=== PATIENT | female | born 1975 | race Caucasian/White ===

== ENCOUNTER 2018-09-12 11:13 | Outpatient (RCR) | payer BC, SELFPAY ==
[2018-09-12] MEDS: Normal Saline Flush 10 ML SYR IVP (11:27)
[2018-09-12 11:43] LABS: ALT 26 U/L (12-78); AST 10 U/L (15-37); Albumin 3.8 g/dL (3.4-5.0); Alkaline Phosphatase 68 U/L (46-116); Anion Gap 8.3 mmol/L (3-11); BUN 15 mg/dL (7-18); Bilirubin, Total 0.3 mg/dL (0.2-1.0); CO2 28.7 mmol/L (21.0-32.0); CREATININE 0.51 mg/dL (0.55-1.02); Calcium 8.8 mg/dL (8.5-10.1); Chloride 103 mmol/L (98-107); Glucose 94 mg/dL (70-100); Sodium 140 mmol/L (136-145); Total Protein 6.8 g/dL (6.4-8.2)
[2018-09-12 11:45] LABS: Abs Immature Grans 0.01 k/cumm (0.0-0.09); Absolute Basophil Count 0.03 k/cumm (0.0-0.2); Absolute Eosinophil Count 0.15 k/cumm (0.0-0.7); Absolute Lymphocyte Count 2.05 k/cumm (1.2-3.4); Absolute Monocyte Count 0.42 k/cumm (0.11-0.7); Absolute Neutrophil Count 3.02 k/cumm (1.2-6.7); Basophils % 0.5; Eosinophils % 2.6; HCT 34.9 % (36.0-46.0); HGB 11.5 g/dL (12.0-15.5); Immature Grans % 0.2; Lymphocytes % 36.1; Mean Corpuscular Hemoglobin 29.6 pg (27.0-33.0); Mean Corpuscular Volume 89.9 fL (80-95); Mean Platelet Volume 9.7 fL (8.0-11.0); Monocytes % 7.4; Neutrophils % 53.2; Platelet Count 237 x1000/uL (130-400); RBC 3.88 m/cumm (4.00-5.20); RBC Distribution Width 13.2 % (11.7-14.6); White Blood Cell Count 5.68 k/cumm (4.4-10.8)
== END 2018-09-14 23:59 | disposition home or self-care (01) ==
LOC: INF 11:13
PROVIDERS: PCP Family Medicine; Visit Provider Internal Medicine Medical Oncology
DX: C50.211 Malignant neoplasm of upper-inner quadrant of right female breast (principal); Z17.0 Estrogen receptor positive status [ER+]; Z45.2 Encounter for adjustment and management of vascular access device
CPT/HCPCS: 36591; 80053; 85025

== ENCOUNTER 2018-09-24 15:48 | Inpatient (IN) | payer BC, SELFPAY ==
[2018-09-24 15:57] VITALS: BP 110/67; PULSE 77; RESP 16; TEMP 36.5; O2SAT 99
--- NOTE | 2018-09-24 16:34 | ED.GENADUL_ITS ---
Discharge Plan Disposition Condition: Improving Discharge Details Chief Complaint: Cellulitis Reason For Visit: CELLUTITIS RT HAND W/LEUKOCYTOSIS, RT BREAST CANCE Admit Date/Time: 09/24/18 17:40 Admit Provider: Sam Austin Attending Provider: Brian Stokes Primary Care Provider: Renetta Mac ED Provider: Justo Gaines Discharge Instructions Activity:: Activity as Tolerated Equipment/Supplies:: No Equipment Needed Diet:: As Tolerated Discharge Orders Discharge Orders: Discharge Order (Routine); Ordered 09/27/18 Ordered By: Lisa Berry Discharge Data Discharge Date/Time-TO BE ENTERED AT DEPARTURE: 09/24/18 18:40 Medical Decision Making 43-year-old female with history of ductal carcinoma of the breast, status post bilateral mastectomy and lymph node dissection right axilla, on chemotherapy, here with rapidly progressive cellulitis of the right second digit. Given immunocompromised state, right axillary lymph node dissection, and rapidly progressive signs, patient will likely benefit from parenteral antibiotic. Labs reviewed. Plan to start vancomycin IV. I called and spoke with the hospitalist who will admit the patient. Care transition to hospitalist. Diagnosis: cellulitis right hand Dispo: admit Condition: serious Please note that documentation of ED visit was unintentionally delayed and may contain autopopulated data from later in hospitalization. HPI General Mode of arrival: ambulatory . Date/Time Provider Initiated Documentation: 09/24/18 16:12 . Limitations to Documentation: no limitations . Information obtained by: patient . HPI Narrative: 43-year-old female with history of ductal carcinoma of the breast, status post bilateral mastectomy and right axillary lymph node dissection, on chemotherapy, presents with chief complaint of finger infection. Patient notes that 3 days ago she noticed a sm all area of abrasion on her right second digit. Yesterday she had increasing inflammation in the area. This inflammation has progressed. Area is red and swollen with a pustule. Redness seems to be rapidly worsening today without streaking into her dorsal hand. Symptoms are moderate. No modifiers. No associated fever. Related Data Home Medications Medication Instructions Recorded Confirmed cholecalciferol (vitamin D3) 1,000 1,000 unit PO DAILY 06/12/18 09/24/18 unit capsule multivitamin tablet 1 tab PO DAILY 06/12/18 09/24/18 acetaminophen 500 mg tablet 1,000 mg PO Q12H PRN PRN tab 01/24/19 03/10/19 cyclobenzaprine 10 mg tablet 10 mg PO TID PRN #30 tab 08/10/18 09/24/18 ibuprofen 600 mg tablet 600 mg PO BID PRN tab 08/10/18 09/24/18 dronabinol 5 mg capsule 10 mg PO QID PRN #100 cap MDD 8 09/06/18 09/24/18 cephalexin [Keflex] 500 mg PO QID #40 cap 09/27/18 Previous Rx's Medication Instructions Recorded cyclobenzaprine 10 mg tablet 10 mg PO TID PRN #30 tab 08/10/18 dronabinol 5 mg capsule 10 mg PO QID PRN #100 cap MDD 8 09/06/18 cephalexin [Keflex] 500 mg PO QID #40 cap 09/27/18 Allergies Allergy/AdvReac Type Severity Reaction Status Date / Time codeine Allergy Severe Verified 09/24/18 16:01 General Stated Complaint: Cellulitis YASMIN: 3 Review of Systems Constitutional Denies fever(s) Integumentary/Breasts Reports as per HPI [facility] Medical History Weight loss (Chronic) Nasal injury (Chronic) Vestibular active Meniere's disease (Chronic) Invasive ductal carcinoma of breast, stage 2 (Chronic) Surgical History History of dilation and curettage (Acute ~05/29/99) S/P mastectomy, bilateral (Acute) S/P rhinoplasty (Acute) S/P tonsillectomy (Acute ~1995) Family History Mother Hypertension Father Hypertension Heart disease Hyperlipidemia Sister No problems noted. Maternal Grandfather Lung cancer Prostate cancer Paternal Grandfather Alcohol abuse Maternal Grandmother Hypertension Ocular melanoma Paternal Grandmother Ovarian cancer Son No problems noted. Son No problems noted. Son No problems noted. 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 Pets and animals: Yes Pets and animals: dog(s) Duration: > 90 minutes/day Frequency: 1-2 times per week Ramonita/Orthodoxy: No preference Special ramonita needs: No Do you feel safe in your relationship?: Yes Female Reproductive History Menstrual control method: condoms History History 4 Para Hx # Term Pregnancies Multiple births Hx # Pregnancies Ectopic pregnancies AB induced Hx Number of Living Children 3 AB spontaneous Exam Const General: cooperative and no acute distress HENMT Mouth: moist mucous membranes Eyes Conjunctivae: normal conjunctivae Sclera: normal sclerae Resp Auscultation: clear to auscultation bilaterally, no rales, no rhonchi and no wheezes Cardio Jugular venous pressure: no JVD Rate: regular rate and not tachycardic Rhythm: regular rhythm Skin Lesions: other (single pustule on rt 2nd digit) Rashes: rashes noted (Dorsal right second digit with erythema extending up to dorsal hand) Extrem Right upper extremity: hand (rash as noted above, swelling rt 2nd digit, able to flex and ext digit) Details: neurosensory exam normal and normal ROM of fingers Course Vital Signs Temperature 36.5 C 09/24/18 15:57 Pulse 77 09/24/18 15:57 Respiratory Rate 16 09/24/18 15:57 Blood Pressure 110/67 09/24/18 15:57 Pulse Oximetry 99 09/24/18 15:57 Temperature 36.5 C 09/24/18 15:57 Temperature Source Skin 09/24/18 15:57 Pulse 77 09/24/18 15:57 Respiratory Rate 16 09/24/18 15:57 Respiratory Effort Non-Labored 09/24/18 15:57 Blood Pressure 110/67 09/24/18 15:57 Blood Pressure Position Sitting 09/24/18 15:57 Pulse Oximetry 99 09/24/18 15:57 Oxygen Delivery Method Room Air 09/24/18 15:57 Oxygen Flow Rate 0 09/24/18 15:57 Pain Level 2 09/24/18 15:57
[2018-09-24] MEDS: Lactated Ringers 1,000 ML 125 ML IV (17:04)
[2018-09-24] MEDS: Normal Saline-STERILE FIELD 0.9% 10 ML SYR (17:04)
[2018-09-24 17:11] LABS: Abs Immature Grans 4.56 k/cumm (0.0-0.09); HCT 31.7 % (36.0-46.0); HGB 10.4 g/dL (12.0-15.5); Mean Corp. HGB Concentration 32.8 g/dL (32.0-36.0); Mean Corpuscular Hemoglobin 29.3 pg (27.0-33.0); Mean Corpuscular Volume 89.3 fL (80-95); Platelet Count 171 x1000/uL (130-400); RBC 3.55 m/cumm (4.00-5.20); RBC Distribution Width 12.9 % (11.7-14.6)
[2018-09-24 17:13] LABS: Lactate 0.7 mmol/L (0.6-1.4)
[2018-09-24] MEDS: VANCOMYCIN 1,500 MG in Normal Saline 250 ML 166.6666 MG IVPB (17:21)
[2018-09-24 17:33] LABS: ALT 26 U/L (12-78); AST 14 U/L (15-37); Albumin 3.6 g/dL (3.4-5.0); Alkaline Phosphatase 114 U/L (46-116); Anion Gap 8.6 mmol/L (3-11); BUN 11 mg/dL (7-18); Bilirubin, Total 0.2 mg/dL (0.2-1.0); CO2 28.4 mmol/L (21.0-32.0); CREATININE 0.54 mg/dL (0.55-1.02); Calcium 8.6 mg/dL (8.5-10.1); Chloride 103 mmol/L (98-107); Glucose 82 mg/dL (70-100); Potassium 3.4 mmol/L (3.5-5.1); Sodium 140 mmol/L (136-145); Total Protein 6.5 g/dL (6.4-8.2)
[2018-09-24 17:39] LABS: Absolute Lymphocyte Count 2.36 k/cumm (1.2-3.4); Absolute Neutrophil Count 19.91 k/cumm (1.2-6.7); Diff Comment Manual Differential; RBC Morphology Normal
[2018-09-24 18:03] VITALS: BP 108/63; PULSE 73; TEMP 37.2; O2SAT 100
--- NOTE | 2018-09-24 18:05 | NUR.NOTE ---
Nursing Note: 1803 c/o head itching--scratching head---Vanco --infusion stopped--Dr Gaines notified and exam pt
[2018-09-24] MEDS: diphenhydrAMINE 50 MG/ML VIAL IVP (18:12)
[2018-09-24 18:40] VITALS: BP 125/71; PULSE 69; RESP 18; TEMP 37.1; O2SAT 100
[2018-09-24 18:52] VITALS: BP 125/71; PULSE 69; RESP 18; TEMP 37.1; O2SAT 100
[2018-09-24 19:11] VITALS: BP 125/71; PULSE 69; RESP 18; TEMP 37.1; O2SAT 100
[2018-09-24] MEDS: CLINDAMYCIN 600 MG/50 ML BAG 100 MG IVPB (19:51)
[2018-09-24] MEDS: Heparin 5,000 UNITS/ML VIAL 5000 UNITS SC (21:28)
--- NOTE | 2018-09-24 22:30 | HPE_ITS ---
Date of service: 09/24/18 Time of Service: 22:23 Assessment and Plan (1) Cellulitis of right index finger: Start date: 09/24/18 Current visit: Yes Status: Acute This is a 43-year-old lady who has slight injury to the dorsal aspect of her right index finger the day prior to admission and then a sudden onset of swelling pain with a pustule and red streak up her right hand and wrist prompting evaluation in the ED because of her recent history of lymph node dissection on the right and breast cancer treatment with an immunocompromised state. She had no fever or systemic symptoms but her white count was elevated and this could be secondary to Neulasta given after her last chemo therapy though this was 2 weeks ago. He will be admitted for IV antibiotic therapy h sara had a slight reaction to vancomycin she was switched to clindamycin IV. If she does well on IV therapy she could be converted to oral therapy for completion. (2) Invasive ductal carcinoma of breast, stage 2: Current visit: No Status: Chronic Patient has ongoing chemotherapy planned and with this infection this may be altered with oncology to determine this plan. She will continue follow-up with oncology. 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 She had complications with nipple necrosis bilaterally now stabilized with corrective surgery. She is on chemotherapy and her last treatment 2 weeks ago and Neulasta after that treatment. She was shopping the day prior to admission and had a small puncture wound over her right index finger on the dorsal aspect of the PIP joint which she kept clean and did not think was a problem. 1 of admission her right knee was stiff and tender with flexion with swelling and redness over her dorsal aspect of the PIP small pustule forming. They progressed the redness went over her hand and up her arm with a red streak with increased pain and she reports the ED for evaluation. She was found to have an elevated white count which may be a consequence of the Neulasta though this is now 2 weeks out. She had no fever, chills or rigors but the swelling and red streak was quickly advancing as well as the pain over the index finger increasing rather quickly. She generally is healthy with no history diabetes but is immunocompromised with her chemotherapy. Review of Systems Review of Systems 13 point review of systems otherwise unrevealing or stable and as per HPI. Patient has lost some weight with a low carb diet over the last several months. [facility] Medical History Weight loss (Chronic) Nasal injury (Chronic) Vestibular active Meniere's disease (Chronic) Invasive ductal carcinoma of breast, stage 2 (Chronic) Surgical History History of dilation and curettage (Acute ~05/29/99) S/P mastectomy, bilateral (Acute) S/P rhinoplasty (Acute) S/P tonsillectomy (Acute ~1995) Family History Mother Hypertension Father Hypertension Heart disease Hyperlipidemia Sister No problems noted. Maternal Grandfather Lung cancer Prostate cancer Paternal Grandfather Alcohol abuse Maternal Grandmother Hypertension Ocular melanoma Paternal Grandmother Ovarian cancer Son No problems noted. Son No problems noted. Son No problems noted. 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 pets and animals: Yes pets and animals: dog(s) frequency: 1-2 times per week duration: > 90 minutes/day Smoking and Tabacco status: Never alcohol intake: never substance use type: does not use merlin/oriental orthodox: No preference special merlin needs: No Female Reproductive History Menstrual control method: condoms History History 4 Para Hx # Term Pregnancies Multiple births Hx # Pregnancies Ectopic pregnancies AB induced Hx Number of Living Children 3 AB spontaneous Meds Home Medications Medication Instructions Recorded Confirmed Type cholecalciferol (vitamin D3) 1,000 1,000 unit PO DAILY 06/12/18 09/24/18 History unit capsule multivitamin tablet 1 tab PO DAILY 06/12/18 09/24/18 History acetaminophen 500 mg tablet 1,000 mg PO Q12H PRN PRN tab 08/10/18 09/24/18 History cyclobenzaprine 10 mg tablet 10 mg PO TID PRN #30 tab 08/10/18 09/24/18 Rx ibuprofen 600 mg tablet 600 mg PO BID PRN tab 08/10/18 09/24/18 History dronabinol 5 mg capsule 10 mg PO QID PRN #100 cap MDD 8 09/06/18 09/24/18 Rx Allergies Allergy/AdvReac Type Severity Reaction Status Date / Time codeine Allergy Severe Verified 09/24/18 16:01 Exam Narrative Exam Narrative: General: Patient appears appropriate for age in no acute distress alert and oriented x3. HEENT: Normocephalic, eyes with pupils equal and reactive to light symmetrically, sclera anicteric, extraocular movement intact. Oropharynx with pink and moist mucosa. Ears normal. Neck: Supple without JVD. Back: Normal posture with no CVA tenderness. Lungs: Clear to auscultation percussion. Heart: Regular rate and rhythm with no murmurs gallops appreciated. Breasts: Recent surgery with bilateral implants, full exam not performed. Abdomen: Contour scaphoid, soft and nontender. No palpable hepatomegaly. Genitalia rectal exam: Deferred. Extremities: Without clubbing cyanosis or pitting edema. Right hand has erythema with localized swelling and tenderness over the PIP of the index finger with erythema extending over the dorsum of the proximal finger onto the hand and of the wrist which actually appears slightly improved from the description by the ED physician status post first dose of IV antibiotics. The index finger is tender to range of motion. There is a possible over the dorsum of the PIP of the right index finger. Skin: Normal color, warm and dry with no rashes. Neuro: Motor intact, cranial nerves II through XII grossly intact. Psych: Normal mood and thought processes, normal memory. Patient has good insight. Results Labs : 09/24/18 17:00 09/24/18 17:00 Laboratory Results - last 24 hr 09/24/18 09/24/18 09/24/18 17:00 17:00 17:00 WBC 26.20 H* RBC 3.55 L Hgb 10.4 L Hct 31.7 L MCV 89.3 MCH 29.3 MCHC 32.8 RDW 12.9 Plt Count 171 MPV 9.0 Immature Gran % See Differential Neutrophils % 73.0 Band Neutrophils % 3.0 Lymphocytes % 9.0 Monocytes % 8.0 Eosinophils % 0.0 Basophils % 0.0 Metamyelocytes % 7.0 Absolute Neutrophils 19.91 H Absolute Lymphocytes 2.36 Absolute Monocytes 2.10 H Absolute Eosinophils 0.00 Absolute Basophils 0.00 Differential Comment Manual differential RBC Morphology Normal Sodium 140 Potassium 3.4 L Chloride 103 Carbon Dioxide 28.4 Anion Gap 8.6 BUN 11 Creatinine 0.54 L Estimated GFR/1.73 m2 >= 60.00 Glucose 82 Lactate 0.7 Calcium 8.6 Total Bilirubin 0.2 AST 14 L ALT 26 Alkaline Phosphatase 114 Total Protein 6.5 Albumin 3.6 Last Vital Signs Temp 37.1 C 09/24/18 19:11 Pulse 69 09/24/18 19:11 Resp 18 09/24/18 19:11 BP 125/71 09/24/18 19:11 Pulse Ox 100 09/24/18 19:11
[2018-09-24 23:30] VITALS: BP 98/68; PULSE 68; RESP 17; TEMP 36.6; O2SAT 97
[2018-09-25] MEDS: Lactated Ringers 1,000 ML 125 ML IV ×2 (00:02→08:41)
[2018-09-25] MEDS: CLINDAMYCIN 600 MG/50 ML BAG 100 MG IVPB ×2 (01:29→08:41)
[2018-09-25 04:17] VITALS: BP 91/59; PULSE 82; RESP 16; TEMP 36; O2SAT 100
[2018-09-25 04:44] VITALS: BP 91/59; PULSE 82; RESP 16; TEMP 36; O2SAT 100
[2018-09-25] MEDS: Heparin 5,000 UNITS/ML VIAL 5000 UNITS SC ×3 (05:58→21:28)
[2018-09-25] MEDS: Ibuprofen 600 MG TAB PO ×2 (06:05→14:56)
[2018-09-25 07:50] VITALS: BP 99/63; PULSE 73; RESP 18; TEMP 36.7; O2SAT 99
[2018-09-25] MEDS: Multivitamin TAB 1 TAB PO (08:41)
[2018-09-25 10:03] LABS: HCT 29.3 % (36.0-46.0); HGB 9.5 g/dL (12.0-15.5); Mean Corp. HGB Concentration 32.4 g/dL (32.0-36.0); Mean Corpuscular Hemoglobin 29.3 pg (27.0-33.0); Mean Corpuscular Volume 90.4 fL (80-95); Mean Platelet Volume 9.9 fL (8.0-11.0); Platelet Count 153 x1000/uL (130-400); RBC 3.24 m/cumm (4.00-5.20); RBC Distribution Width 12.9 % (11.7-14.6); White Blood Cell Count 18.14 k/cumm (4.4-10.8)
--- NOTE | 2018-09-25 10:18 | PDOC.CMIN ---
- If Service Date Differs Date of service: 09/25/18 Time of Service: 10:19 Care Management Initial Assess REASON FOR HOSPITALIZATION:: Cellulitis of the right index finger PAST MEDICAL HISTORY/PAST SURGICAL HISTORY:: Medical Hx:Carcinoma of the breast stage 2 PREVIOUS FUNCTIONAL STATUS/SOCIAL/FAMILY SUPPORTS:: Lynda lives in [place], [place] with her spouse and three children. She is indepedent with activities of daily lives and transportation. CURRENT FUNCTIONAL STATUS:: Lynda is engaged with CM during assessment. She is sitting up in the bed ready to eat her lunch. Her right hands has improved her WBC remians elevated however trending down. She will transition to oral antibiotics today and she anticipates she will return home on Tuesday. Lynda states she was hopeful to return home today however she understands why she will continue her stay. ADVANCE DIRECTIVES:: None on file Has patient been provided with information about the portal?: Yes Did the patient sign up for the portal?: No (Enrolled ) CODE STATUS:: Full Code INSURANCE COVERAGE / FINANCIAL ISSUES:: BCBS CURRENT HOME/COMMUNITY SERVICES/EQUIPMENT:: Primary care and [facility] PRIMARY CARE PHYSICIAN:: POTENTIAL DISCHARGE NEEDS:: Follow up appointment scheduled with primary care provider prior to discharge. PATIENT/FAMILY EDUCATION NEEDS:: Discharge education, limitations and follow up plan of care and ask me three education. Self management, and ask me three education. ANTICIPATED BARRIERS TO DISCHARGE:: None identified TRANSPORTATION:: Via private car with spouse at time of discharge. PLAN:: Lynda will be discharged home when medically ready per provider. She will transition to oral antibiotics today and continued to be monitored for signs and symptoms or worsening infection. CM to continue to provide support ongoing discharged planning.
[2018-09-25 10:21] LABS: ALT 22 U/L (12-78); AST 13 U/L (15-37); Albumin 3.1 g/dL (3.4-5.0); Alkaline Phosphatase 99 U/L (46-116); Anion Gap 6.8 mmol/L (3-11); BUN 9 mg/dL (7-18); Bilirubin, Total 0.1 mg/dL (0.2-1.0); CO2 30.2 mmol/L (21.0-32.0); CREATININE 0.53 mg/dL (0.55-1.02); Calcium 8.1 mg/dL (8.5-10.1); Chloride 105 mmol/L (98-107); Glucose 71 mg/dL (70-100); Potassium 3.3 mmol/L (3.5-5.1); Sodium 142 mmol/L (136-145); Total Protein 5.5 g/dL (6.4-8.2)
--- NOTE | 2018-09-25 10:26 | INITIAL_ITS ---
- If Service Date Differs Date of service: 09/25/18 Time of Service: 10:19 Care Management Initial Assess REASON FOR HOSPITALIZATION:: Cellulitis of the right index finger PAST MEDICAL HISTORY/PAST SURGICAL HISTORY:: Medical Hx:Carcinoma of the breast stage 2 PREVIOUS FUNCTIONAL STATUS/SOCIAL/FAMILY SUPPORTS:: Lynda lives in [place], [place] with her spouse and three children. She is indepedent with activities of daily lives and transportation. CURRENT FUNCTIONAL STATUS:: Lynda is engaged with CM during assessment. She is sitting up in the bed ready to eat her lunch. Her right hands has improved her WBC remians elevated however trending down. She will transition to oral antibiotics today and she anticipates she will return home on Tuesday. Lynda states she was hopeful to return home today however she understands why she will continue her stay. ADVANCE DIRECTIVES:: None on file Has patient been provided with information about the portal?: Yes Did the patient sign up for the portal?: No (Enrolled ) CODE STATUS:: Full Code INSURANCE COVERAGE / FINANCIAL ISSUES:: BCBS CURRENT HOME/COMMUNITY SERVICES/EQUIPMENT:: Primary care and [facility] PRIMARY CARE PHYSICIAN:: POTENTIAL DISCHARGE NEEDS:: Follow up appointment scheduled with primary care provider prior to discharge. PATIENT/FAMILY EDUCATION NEEDS:: Discharge education, limitations and follow up plan of care and ask me three education. Self management, and ask me three education. ANTICIPATED BARRIERS TO DISCHARGE:: None identified TRANSPORTATION:: Via private car with spouse at time of discharge. PLAN:: Lynda will be discharged home when medically ready per provider. She will transition to oral antibiotics today and continued to be monitored for signs and symptoms or worsening infection. CM to continue to provide support ongoing discharged planning.
[2018-09-25 11:45] VITALS: BP 92/61; PULSE 60; RESP 18; TEMP 36.2; O2SAT 99
[2018-09-25] MEDS: Clindamycin 150 MG CAP 450 MG PO (11:59)
[2018-09-25] MEDS: Potassium Chloride 20 MEQ TABCR PO (12:00)
--- NOTE | 2018-09-25 12:08 | W.PM.PROGNOT ---
Date of Service Date of service: 09/25/18 Time of Service: 12:57 Assessment and Plan (1) Cellulitis of right index finger: Current visit: Yes Status: Acute Day 2 of clindamycin. Her finger looks to be improved. There is very little erythema surrounding the wound bed, no streaking or edema. She feels great. She was transitioned to Clindamycin po we will watch her tonight to make sure her WBC continue to trend down. If tolerating PO antbx and wbc continue to decline she can be discharged tomorrow with a course antbx. (2) Invasive ductal carcinoma of breast, stage 2: Start date: 09/25/18 Start time: 12:55 Current visit: No Status: Chronic Patient has ongoing chemotherapy planned and with this infection this may be altered with oncology to determine this plan. She will continue follow-up with oncology. (3) DVT prophylaxis: Start date: 09/25/18 Start time: 12:55 Current visit: Yes Status: Acute heparin, subcu Subjective Patient reports: feels better Interval history since last seen: Mrs. Salguero is a 43 y.o F. with PMH ductal carcinoma of right breast stage II post bilateral mastectomy with lymph node dissection on right and reconstruction bilaterally. She is on chemotherapy and her last treatment was 2 weeks ago. She was admitted from [facility] Emergency Department on 09/24 for a small puncture wound over her right index finger. The redness went over her hand and up her arm with a red streak with increased pain. Upon admission her white blood cell count was elevated. She has had no fever, no chills. She was admitted for immunocompromise from chemo and elevated WBC, started on clindamycin IV. Today she looks good. She states her finger is feeling better and there are no red streaks or swelling. There is a little erythema around the wound, but it does look good. WBC is trending down from 20 to 18.14. She has been transitioned to PO clindamycin. Given her history with immunosuppression, it is a good idea keeping her one more night and making sure her WBC are trending down with po transition. Her IVF have been DCD. She denies CP, SOB, N/V/D, afebrile Exam Narrative Exam Narrative: General: Patient appears appropriate for age in no acute distress alert and oriented x3. HEENT: Normocephalic, eyes with pupils equal and reactive to light symmetrically, sclera anicteric, extraocular movement intact. . Lungs: Clear to auscultation percussion. Heart: Regular rate and rhythm with no murmurs gallops appreciated. Breasts: Recent surgery with bilateral implants, full exam not performed. Abdomen: soft and nontender. No palpable hepatomegaly. Extremities: no edema, erythema is minimal around wound, no streaking Skin: Normal color, warm and dry with no rashes. Neuro: Motor intact, cranial nerves II through XII grossly intact. Psych: Normal mood and thought processes, normal memory. Patient has good insight. Objective Objective Clinical Data: Abnormal lab results 09/24/18 09/24/18 09/25/18 Range/Units 17:00 17:00 09:25 WBC 26.20 H* (4.4-10.8) k/cumm RBC 3.55 L (4.00-5.20) m/cumm Hgb 10.4 L (12.0-15.5) g/dL Hct 31.7 L (36.0-46.0) % Absolute Neutrophils 19.91 H (1.2-6.7) k/cumm Absolute Monocytes 2.10 H (0.11-0.7) k/cumm Potassium 3.4 L 3.3 L (3.5-5.1) mmol/L Creatinine 0.54 L 0.53 L (0.55-1.02) mg/dL Calcium 8.1 L (8.5-10.1) mg/dL Total Bilirubin 0.1 L (0.2-1.0) mg/dL AST 14 L 13 L (15-37) U/L Total Protein 5.5 L (6.4-8.2) g/dL Albumin 3.1 L (3.4-5.0) g/dL 09/25/18 Range/Units 09:25 WBC 18.14 H D (4.4-10.8) k/cumm RBC 3.24 L (4.00-5.20) m/cumm Hgb 9.5 L (12.0-15.5) g/dL Hct 29.3 L (36.0-46.0) % Absolute Neutrophils (1.2-6.7) k/cumm Absolute Monocytes (0.11-0.7) k/cumm Potassium (3.5-5.1) mmol/L Creatinine (0.55-1.02) mg/dL Calcium (8.5-10.1) mg/dL Total Bilirubin (0.2-1.0) mg/dL AST (15-37) U/L Total Protein (6.4-8.2) g/dL Albumin (3.4-5.0) g/dL Vital Signs Temperature 36.7 C 09/25/18 07:50 Temperature Source Tympanic 09/25/18 07:50 Pulse 73 09/25/18 07:50 Pulse Rhythm Regular 09/25/18 08:44 Respiratory Rate 18 09/25/18 07:50 Respiratory Effort Non-Labored 09/25/18 08:44 Respiratory Depth Normal 09/25/18 08:44 Blood Pressure 99/63 L 09/25/18 07:50 Blood Pressure Position Sitting 09/24/18 15:57 Pulse Oximetry 99 09/25/18 07:50 Oxygen Delivery Method Room Air 09/25/18 07:50 Oxygen Flow Rate 0 09/25/18 07:50 Pain Level 2 09/25/18 07:50 Intake & Output 09/24/18 09/25/18 09/25/18 23:59 11:59 23:59 Intake Total 456.667 / 105.581 1684.833 / 2210.833 Balance 456.667 / 407.625 7697.833 / 2210.833 Weight 65.317 kg 68.4 kg Intake: IV 216.667 / 123.459 7675.833 / 1969.833 Oral 240 / 240 240 / 240 Other: Urine Color Yellow Urine Appearance Clear Clear Urine Odor Normal Comment Pt voiding ad darnell in toilet; hat removed. Pt denies sx. Voiding Methods Toilet Laboratory Results WBC 18.14 k/cumm (4.4-10.8) H D 09/25/18 09:25 RBC 3.24 m/cumm (4.00-5.20) L 09/25/18 09:25 Hgb 9.5 g/dL (12.0-15.5) L 09/25/18 09:25 Hct 29.3 % (36.0-46.0) L 09/25/18 09:25 MCV 90.4 fL (80-95) 09/25/18 09:25 MCH 29.3 pg (27.0-33.0) 09/25/18 09:25 MCHC 32.4 g/dL (32.0-36.0) 09/25/18 09:25 RDW 12.9 % (11.7-14.6) 09/25/18 09:25 Plt Count 153 x1000/uL (130-400) 09/25/18 09:25 MPV 9.9 fL (8.0-11.0) 09/25/18 09:25 Immature Gran % See Differential 09/24/18 17:00 Neutrophils % 73.0 09/24/18 17:00 Band Neutrophils % 3.0 % 09/24/18 17:00 Lymphocytes % 9.0 09/24/18 17:00 Monocytes % 8.0 09/24/18 17:00 Eosinophils % 0.0 09/24/18 17:00 Basophils % 0.0 09/24/18 17:00 Metamyelocytes % 7.0 % 09/24/18 17:00 Absolute Neutrophils 19.91 k/cumm (1.2-6.7) H 09/24/18 17:00 Absolute Lymphocytes 2.36 k/cumm (1.2-3.4) 09/24/18 17:00 Absolute Monocytes 2.10 k/cumm (0.11-0.7) H 09/24/18 17:00 Absolute Eosinophils 0.00 k/cumm (0.0-0.7) 09/24/18 17:00 Absolute Basophils 0.00 k/cumm (0.0-0.2) 09/24/18 17:00 Differential Comment Manual differential 09/24/18 17:00 RBC Morphology Normal 09/24/18 17:00 Sodium 142 mmol/L (136-145) 09/25/18 09:25 Potassium 3.3 mmol/L (3.5-5.1) L 09/25/18 09:25 Chloride 105 mmol/L (98-107) 09/25/18 09:25 Carbon Dioxide 30.2 mmol/L (21.0-32.0) 09/25/18 09:25 Anion Gap 6.8 mmol/L (3-11) 09/25/18 09:25 BUN 9 mg/dL (7-18) 09/25/18 09:25 Creatinine 0.53 mg/dL (0.55-1.02) L 09/25/18 09:25 Estimated GFR/1.73 m2 >= 60.00 (mL/min/1.73m2) 09/25/18 09:25 Glucose 71 mg/dL (70-100) 09/25/18 09:25 Lactate 0.7 mmol/L (0.6-1.4) 09/24/18 17:00 Calcium 8.1 mg/dL (8.5-10.1) L 09/25/18 09:25 Total Bilirubin 0.1 mg/dL (0.2-1.0) L 09/25/18 09:25 AST 13 U/L (15-37) L 09/25/18 09:25 ALT 22 U/L (12-78) 09/25/18 09:25 Alkaline Phosphatase 99 U/L (46-116) 09/25/18 09:25 Total Protein 5.5 g/dL (6.4-8.2) L 09/25/18 09:25 Albumin 3.1 g/dL (3.4-5.0) L 09/25/18 09:25
--- NOTE | 2018-09-25 12:38 | PGE_ITS ---
Addendum entered and electronically signed by Awilda Amaya NP 09/25/18 16:39: Went back to check on patient and talk about lab results, pt c/o red streaking returning. Pain to mid forearm that was worse than on admission. Red streak above forearm. She did say vanco gave her an itchy scalp. Given this was the side effect and worsening infection with immunosuppressant state, vancomycin started with benadryl prior to administration. Attempted I&D at the bedside scant amount of drainage, wound cultured from scant drainage for growth. Awaiting cultures at this time. continue to monitor wound and patient. Original Note: Date of Service Date of service: 09/25/18 Time of Service: 12:57 Assessment and Plan (1) Cellulitis of right index finger: Current visit: Yes Status: Acute Day 2 of clindamycin. Her finger looks to be improved. There is very little erythema surrounding the wound bed, no streaking or edema. She feels great. She was transitioned to Clindamycin po we will watch her tonight to make sure her WBC continue to trend down. If tolerating PO antbx and wbc continue to decline she can be discharged tomorrow with a course antbx. (2) Invasive ductal carcinoma of breast, stage 2: Start date: 09/25/18 Start time: 12:55 Current visit: No Status: Chronic Patient has ongoing chemotherapy planned and with this infection this may be altered with oncology to determine this plan. She will continue follow-up with oncology. (3) DVT prophylaxis: Start date: 09/25/18 Start time: 12:55 Current visit: Yes Status: Acute heparin, subcu Subjective Patient reports: feels better Interval history since last seen: Mrs. Salguero is a 43 y.o F. with [facility] ductal carcinoma of right breast stage II post bilateral mastectomy with lymph node dissection on right and reconstruction bilaterally. She is on chemotherapy and her last treatment was 2 weeks ago. She was admitted from [facility] Emergency Department on 09/24 for a small puncture wound over her right index finger. The redness went over her hand and up her arm with a red streak with increased pain. Upon admission her white blood cell count was elevated. She has had no fever, no chills. She was admitted for immunocompromise from chemo and elevated WBC, started on clindamycin IV. Today she looks good. She states her finger is feeling better and there are no red streaks or swelling. There is a little erythema around the wound, but it does look good. WBC is trending down from 20 to 18.14. She has been transitioned to PO clindamycin. Given her history with immunosuppression, it is a good idea keeping her one more night and making sure her WBC are trending down with po transition. Her IVF have been DCD. She denies CP, SOB, N/V/D, afebrile Exam Narrative Exam Narrative: General: Patient appears appropriate for age in no acute distress alert and oriented x3. HEENT: Normocephalic, eyes with pupils equal and reactive to light symmetrically, sclera anicteric, extraocular movement intact. . Lungs: Clear to auscultation percussion. Heart: Regular rate and rhythm with no murmurs gallops appreciated. Breasts: Recent surgery with bilateral implants, full exam not performed. Abdomen: soft and nontender. No palpable hepatomegaly. Extremities: no edema, erythema is minimal around wound, no streaking Skin: Normal color, warm and dry with no rashes. Neuro: Motor intact, cranial nerves II through XII grossly intact. Psych: Normal mood and thought processes, normal memory. Patient has good insight. Objective Objective Clinical Data: Abnormal lab results 09/24/18 09/24/18 09/25/18 Range/Units 17:00 17:00 09:25 WBC 26.20 H* (4.4-10.8) k/cumm RBC 3.55 L (4.00-5.20) m/cumm Hgb 10.4 L (12.0-15.5) g/dL Hct 31.7 L (36.0-46.0) % Absolute Neutrophils 19.91 H (1.2-6.7) k/cumm Absolute Monocytes 2.10 H (0.11-0.7) k/cumm Potassium 3.4 L 3.3 L (3.5-5.1) mmol/L Creatinine 0.54 L 0.53 L (0.55-1.02) mg/dL Calcium 8.1 L (8.5-10.1) mg/dL Total Bilirubin 0.1 L (0.2-1.0) mg/dL AST 14 L 13 L (15-37) U/L Total Protein 5.5 L (6.4-8.2) g/dL Albumin 3.1 L (3.4-5.0) g/dL 09/25/18 Range/Units 09:25 WBC 18.14 H D (4.4-10.8) k/cumm RBC 3.24 L (4.00-5.20) m/cumm Hgb 9.5 L (12.0-15.5) g/dL Hct 29.3 L (36.0-46.0) % Absolute Neutrophils (1.2-6.7) k/cumm Absolute Monocytes (0.11-0.7) k/cumm Potassium (3.5-5.1) mmol/L Creatinine (0.55-1.02) mg/dL Calcium (8.5-10.1) mg/dL Total Bilirubin (0.2-1.0) mg/dL AST (15-37) U/L Total Protein (6.4-8.2) g/dL Albumin (3.4-5.0) g/dL Vital Signs Temperature 36.7 C 09/25/18 07:50 Temperature Source Tympanic 09/25/18 07:50 Pulse 73 09/25/18 07:50 Pulse Rhythm Regular 09/25/18 08:44 Respiratory Rate 18 09/25/18 07:50 Respiratory Effort Non-Labored 09/25/18 08:44 Respiratory Depth Normal 09/25/18 08:44 Blood Pressure 99/63 L 09/25/18 07:50 Blood Pressure Position Sitting 09/24/18 15:57 Pulse Oximetry 99 09/25/18 07:50 Oxygen Delivery Method Room Air 09/25/18 07:50 Oxygen Flow Rate 0 09/25/18 07:50 Pain Level 2 09/25/18 07:50 Intake & Output 09/24/18 09/25/18 09/25/18 23:59 11:59 23:59 Intake Total 456.667 / 275.216 6202.833 / 2210.833 Balance 456.667 / 233.780 9876.833 / 2210.833 Weight 65.317 kg 68.4 kg Intake: IV 216.667 / 109.192 2134.83 / 1970.833 Oral 240 / 240 240 / 240 Other: Urine Color Yellow Urine Appearance Clear Clear Urine Odor Normal Comment Pt voiding ad darnell in toilet; hat removed. Pt denies sx. Voiding Methods Toilet Laboratory Results WBC 18.14 k/cumm (4.4-10.8) H D 09/25/18 09:25 RBC 3.24 m/cumm (4.00-5.20) L 09/25/18 09:25 Hgb 9.5 g/dL (12.0-15.5) L 09/25/18 09:25 Hct 29.3 % (36.0-46.0) L 09/25/18 09:25 MCV 90.4 fL (80-95) 09/25/18 09:25 MCH 29.3 pg (27.0-33.0) 09/25/18 09:25 MCHC 32.4 g/dL (32.0-36.0) 09/25/18 09:25 RDW 12.9 % (11.7-14.6) 09/25/18 09:25 Plt Count 153 x1000/uL (130-400) 09/25/18 09:25 MPV 9.9 fL (8.0-11.0) 09/25/18 09:25 Immature Gran % See Differential 09/24/18 17:00 Neutrophils % 73.0 09/24/18 17:00 Band Neutrophils % 3.0 % 09/24/18 17:00 Lymphocytes % 9.0 09/24/18 17:00 Monocytes % 8.0 09/24/18 17:00 Eosinophils % 0.0 09/24/18 17:00 Basophils % 0.0 09/24/18 17:00 Metamyelocytes % 7.0 % 09/24/18 17:00 Absolute Neutrophils 19.91 k/cumm (1.2-6.7) H 09/24/18 17:00 Absolute Lymphocytes 2.36 k/cumm (1.2-3.4) 09/24/18 17:00 Absolute Monocytes 2.10 k/cumm (0.11-0.7) H 09/24/18 17:00 Absolute Eosinophils 0.00 k/cumm (0.0-0.7) 09/24/18 17:00 Absolute Basophils 0.00 k/cumm (0.0-0.2) 09/24/18 17:00 Differential Comment Manual differential 09/24/18 17:00 RBC Morphology Normal 09/24/18 17:00 Sodium 142 mmol/L (136-145) 09/25/18 09:25 Potassium 3.3 mmol/L (3.5-5.1) L 09/25/18 09:25 Chloride 105 mmol/L (98-107) 09/25/18 09:25 Carbon Dioxide 30.2 mmol/L (21.0-32.0) 09/25/18 09:25 Anion Gap 6.8 mmol/L (3-11) 09/25/18 09:25 BUN 9 mg/dL (7-18) 09/25/18 09:25 Creatinine 0.53 mg/dL (0.55-1.02) L 09/25/18 09:25 Estimated GFR/1.73 m2 >= 60.00 (mL/min/1.73m2) 09/25/18 09:25 Glucose 71 mg/dL (70-100) 09/25/18 09:25 Lactate 0.7 mmol/L (0.6-1.4) 09/24/18 17:00 Calcium 8.1 mg/dL (8.5-10.1) L 09/25/18 09:25 Total Bilirubin 0.1 mg/dL (0.2-1.0) L 09/25/18 09:25 AST 13 U/L (15-37) L 09/25/18 09:25 ALT 22 U/L (12-78) 09/25/18 09:25 Alkaline Phosphatase 99 U/L (46-116) 09/25/18 09:25 Total Protein 5.5 g/dL (6.4-8.2) L 09/25/18 09:25 Albumin 3.1 g/dL (3.4-5.0) L 09/25/18 09:25
[2018-09-25] MEDS: diphenhydrAMINE 25 MG CAP PO ×2 (14:52→21:28)
--- NOTE | 2018-09-25 15:25 | CHAPLAIN ---
I had a short visit with Lynda. She said her family members have been in and out today and her is returning soon with some food for her. I explained my role and offered support.
[2018-09-25 16:22] VITALS: BP 111/73; PULSE 60; RESP 18; TEMP 37; O2SAT 100
--- NOTE | 2018-09-25 18:28 | PHARADMIT ---
Admission Pharmacy Clinical Review Cellultis right hand/finger Code Status Full Code Current Weight 68.4 kg Renally Cleared and Narrow Therapeutic Index Meds CrCl~93ml/min QTc Value / Action Taken BP Control, Fever BP 111/73, Afebrile, Pain 07/27 (Ibuprofen, APAP) Electrolytes reviewed K+ 3.3, no Mag level DVT Prophylaxis Heparin sC Opiate Usage / Scheduled Bowel Regimen Ordered no/yes Plt/SCr for Heparin / Enoxaparin Plt 153 SCr 0.53 INR for Warfarin H/H stable, WBC/Bands H/H 9.5/29.3 WBC 18.14 (down) Antibiotic appropriateness Started on IV Clinda, switched to oral x 1 dose, MD evaluation found worsening condition, pain increased, changed to Vanco Cultures and Sensitivities Micro finger source/abscess: Rare gram + cocci Watch for sensitivities Surgical ABX d/c within 24 hr DM control / Insulin Dosing Heart Failure (Check EF%) (TERRANCE's, B-Block, Diuretics) none IV to PO Switch Home Meds Reviewed Home Meds Not Ordered ok Comments Vanco trough [facility] 09/26/18 @ 1300 Being treated for breast cancer
[2018-09-25 20:19] VITALS: BP 120/82; PULSE 56; RESP 16; TEMP 36.4; O2SAT 100
[2018-09-25] MEDS: Normal Saline Flush 10 ML SYR IVP (22:05)
[2018-09-25] MEDS: Docusate Sodium 100 MG CAP PO (22:16)
[2018-09-26] VITALS (7 sets, daily range): BP systolic 92–132; BP diastolic 59–78; PULSE 62–72; RESP 16–19; TEMP 36.1–37.1; O2SAT 97–100
[2018-09-26] MEDS: Normal Saline Flush 10 ML SYR IVP ×5 (00:03→14:59)
[2018-09-26] MEDS: diphenhydrAMINE 25 MG CAP PO (05:46)
[2018-09-26] MEDS: Heparin 5,000 UNITS/ML VIAL 5000 UNITS SC ×3 (06:27→21:49)
[2018-09-26] MEDS: Multivitamin TAB 1 TAB PO (07:53)
[2018-09-26] MEDS: Polyethylene Glycol 3350 17 GM PACKET PO (08:03)
--- NOTE | 2018-09-26 09:46 | PDOC.CMPRO ---
- If Service Date Differs Date of service: 09/26/18 Time of Service: 09:46 Care Management Progress Note S/O: CM met with Lynda in her room she is sitting up in the chair. His finger continues to have redness she states it had increase drainage this morning. Wound culture growing gram positive bacteria, sensitivities are pending. She was restarted on Vancomycin q 8 hours today. WBC is pending this morning upon chart review. Anticipate she will remain acute today while awaiting sensitivities. Lynda is scheduled for her next chemotherapy at [facility] on 10/02/18. She request that provider contact her oncologist Dr. Celia Bailey at [facility]. Anticipate Lynda will be discharged home on oral antibiotics, CM did review options for home infusion versus Infusion room services. In the event she will need ongoing IV antibiotics she will consider home infusion vs outpatient. A: Lynda was admitted with cellulitis on the right hand. She has a history of breast ca, with bilat mastectomy and reconstructive surgery. She received her first chemotherapy on 09/12/18. She is scheduled for her next treatment on 10/02/18. Oncologist is at [facility]. P: Lynda will be discharged home when medically ready pending sensitivities. Continue IV antibiotics at this time. She will follow up with oncologist on 10/02/18 as scheduled. No additional services needed pending route of antibiotics. Spouse will transport home when she is ready for discharge.
--- NOTE | 2018-09-26 09:53 | CMPROGNOTE_ITS ---
- If Service Date Differs Date of service: 09/26/18 Time of Service: 09:46 Care Management Progress Note S/O: CM met with Lynda in her room she is sitting up in the chair. His finger continues to have redness she states it had increase drainage this morning. Wound culture growing gram positive bacteria, sensitivities are pending. She was restarted on Vancomycin q 8 hours today. WBC is pending this morning upon chart review. Anticipate she will remain acute today while awaiting sensitivities. Lynda is scheduled for her next chemotherapy at [facility] on 10/02/18. She request that provider contact her oncologist Dr. Celia Bailey at [facility]. Anticipate Lynda will be discharged home on oral antibiotics, CM did review options for home infusion versus Infusion room services. In the event she will need ongoing IV antibiotics she will consider home infusion vs outpatient. A: Lynda was admitted with cellulitis on the right hand. She has a history of breast ca, with bilat mastectomy and reconstructive surgery. She received her first chemotherapy on 09/12/18. She is scheduled for her next treatment on 10/02/18. Oncologist is at [facility]. P: Lynda will be discharged home when medically ready pending sensitivities. Continue IV antibiotics at this time. She will follow up with oncologist on 10/02/18 as scheduled. No additional services needed pending route of antibiotics. Spouse will transport home when she is ready for discharge.
[2018-09-26 10:42] LABS: HCT 31.6 % (36.0-46.0); HGB 10.4 g/dL (12.0-15.5); Mean Corp. HGB Concentration 32.9 g/dL (32.0-36.0); Mean Corpuscular Hemoglobin 29.5 pg (27.0-33.0); Mean Corpuscular Volume 89.5 fL (80-95); Mean Platelet Volume 9.2 fL (8.0-11.0); Platelet Count 163 x1000/uL (130-400); RBC 3.53 m/cumm (4.00-5.20); RBC Distribution Width 12.9 % (11.7-14.6); White Blood Cell Count 18.77 k/cumm (4.4-10.8)
[2018-09-26 10:48] LABS: Anion Gap 8.7 mmol/L (3-11); BUN 9 mg/dL (7-18); CO2 28.3 mmol/L (21.0-32.0); CREATININE 0.53 mg/dL (0.55-1.02); Calcium 8.7 mg/dL (8.5-10.1); Chloride 105 mmol/L (98-107); Glucose 92 mg/dL (70-100); Potassium 3.9 mmol/L (3.5-5.1); Sodium 142 mmol/L (136-145)
[2018-09-26 13:57] LABS: Vancomycin, Trough 16.1 ug/mL (10.0-20.0)
[2018-09-26] MEDS: Milk of Magnesia 30 ML CUP PO (15:44)
--- NOTE | 2018-09-26 16:23 | PGE_ITS ---
Date of Service Date of service: 09/26/18 Time of Service: 16:21 Assessment and Plan (1) Cellulitis of right index finger: Current visit: Yes Status: Acute Improving on IV vancomycin. White blood cell count remains elevated at 18.77 today. Cultures growing staph aureus, sensitivities pending. Continue IV vancomycin pending sensitivities. Warm compress for comfort. Repeat CBC in the morning. (2) Invasive ductal carcinoma of breast, stage 2: Current visit: No Status: Chronic She is followed by Dr. Celia Styles, [facility]. Phone call placed to Dr. Styles today to discuss her care, Dr. Styles is out of the country until 10/02/2018. Discussed case with triage nurse, she will notify the team. At this point we will plan to have her follow- up as scheduled on 10/02/2018. (3) DVT prophylaxis: Current visit: Yes Status: Acute Subcutaneous heparin. (4) Discharge planning issues: Current visit: Yes Status: Acute She is a full code. This case was discussed with Dr. Stokes who is in agreement. Subjective Interval history since last seen: Mrs. Salguero is a 43 y.o F. with [facility] ductal ca rcinoma of right breast stage II post bilateral mastectomy with lymph node dissection on right with spacer placement. She is currently being treated for cellulitis of the right index finger, originating from a small cut over the PIP joint. She reports feeling better today. She reports that the redness has decreased significantly, her pain has improved. She transition to oral clindamycin yester day and reported increased erythema, edema and return of the red streak up her arm. She is back on IV Vancomycin and feeling well. She denies shortness of breath, cough, wheezing, chest pain/pressure, palpitations, she is eating and drinking well, no nausea, vomiting or diarrhea. She has requested that we contact her oncology team to discuss her care. Exam Narrative Exam Narrative: General: Alert and oriented, pleasant and cooperative, normocephalic, sitting up in the chair, in no acute distress. HEENT: Atraumatic, pupils equal and round, mucous membranes moist. Neck: Supple, no JVD. Respiratory: Respirations even and unlabored, lung sounds clear to auscultation throughout. Cardiovascular: Heart has regular rate and rhythm, no murmur appreciated. Breasts: Spacers in place, status post recent bilateral mastectomy, full exam not performed. Abdomen: Normal active bowel sounds throughout, abdomen soft, nontender on palpation. Extremities right hand with approximately 1 cm area of erythema over her PIP joint on right index finger, no edema, no active drainage, no erythema to hand or forearm. Bilateral lower extremities without clubbing, cyanosis or edema. Peripheral pulses palpable bilaterally. Objective Objective Clinical Data: Abnormal lab results 09/26/18 09/26/18 Range/Units 10:22 10:22 WBC 18.77 H (4.4-10.8) k/cumm RBC 3.53 L (4.00-5.20) m/cumm Hgb 10.4 L (12.0-15.5) g/dL Hct 31.6 L (36.0-46.0) % Creatinine 0.53 L (0.55-1.02) mg/dL Vital Signs Temperature 37.0 C 09/26/18 12:13 Temperature Source Tympanic 09/26/18 12:13 Pulse 66 09/26/18 12:13 Pulse Rhythm Regular 09/26/18 15:36 Respiratory Rate 17 09/26/18 12:13 Respiratory Effort Non-Labored 09/26/18 15:36 Respiratory Depth Normal 09/26/18 15:36 Blood Pressure 105/70 09/26/18 12:13 Blood Pressure Position Sitting 09/24/18 15:57 Pulse Oximetry 99 09/26/18 12:13 Oxygen Delivery Method Room Air 09/26/18 12:13 Oxygen Flow Rate 0 09/26/18 12:13 Pain Level 1 09/26/18 07:35 Comment 09/26/18 04:01 Intake & Output 09/25/18 09/26/18 09/26/18 23:59 11:59 23:59 Intake Total 990 / 3594.583 490 / 730 240 / 730 Balance 990 / 3594.583 490 / 730 240 / 730 Weight 67.4 kg Intake: IV 750 / 3114.583 250 / 250 Oral 240 / 480 240 / 480 240 / 480 Other: Urine Appearance Clear Clear Laboratory Results WBC 18.77 k/cumm (4.4-10.8) H 09/26/18 10:22 RBC 3.53 m/cumm (4.00-5.20) L 09/26/18 10:22 Hgb 10.4 g/dL (12.0-15.5) L 09/26/18 10:22 Hct 31.6 % (36.0-46.0) L 09/26/18 10:22 MCV 89.5 fL (80-95) 09/26/18 10:22 MCH 29.5 pg (27.0-33.0) 09/26/18 10: MCHC 32.9 g/dL (32.0-36.0) 09/26/18 10: RDW 12.9 % (11.7-14.6) 09/26/18 10:22 Plt Count 163 x1000/uL (130-400) 09/26/18 10:22 MPV 9.2 fL (8.0-11.0) 09/26/18 10:22 Immature Gran % See Differential 09/24/18 17:00 Neutrophils % 73.0 09/24/18 17:00 Band Neutrophils % 3.0 % 09/24/18 17:00 Lymphocytes % 9.0 09/24/18 17:00 Monocytes % 8.0 09/24/18 17:00 Eosinophils % 0.0 09/24/18 17:00 Basophils % 0.0 09/24/18 17:00 Metamyelocytes % 7.0 % 09/24/18 17:00 Absolute Neutrophils 19.91 k/cumm (1.2-6.7) H 09/24/18 17:00 Absolute Lymphocytes 2.36 k/cumm (1.2-3.4) 09/24/18 17:00 Absolute Monocytes 2.10 k/cumm (0.11-0.7) H 09/24/18 17:00 Absolute Eosinophils 0.00 k/cumm (0.0-0.7) 09/24/18 17:00 Absolute Basophils 0.00 k/cumm (0.0-0.2) 09/24/18 17:00 Differential Comment Manual differential 09/24/18 17:00 RBC Morphology Normal 09/24/18 17:00 Sodium 142 mmol/L (136-145) 09/26/18 10:22 Potassium 3.9 mmol/L (3.5-5.1) 09/26/18 10:22 Chloride 105 mmol/L (98-107) 09/26/18 10:22 Carbon Dioxide 28.3 mmol/L (21.0-32.0) 09/26/18 10:22 Anion Gap 8.7 mmol/L (3-11) 09/26/18 10:22 BUN 9 mg/dL (7-18) 09/26/18 10:22 Creatinine 0.53 mg/dL (0.55-1.02) L 09/26/18 10:22 Estimated GFR/1.73 m2 >= 60.00 (mL/min/1.73m2) 09/26/18 10:22 Glucose 92 mg/dL (70-100) 09/26/18 10:22 Lactate 0.7 mmol/L (0.6-1.4) 09/24/18 17:00 Calcium 8.7 mg/dL (8.5-10.1) 09/26/18 10:22 Total Bilirubin 0.1 mg/dL (0.2-1.0) L 09/25/18 09:25 AST 13 U/L (15-37) L 09/25/18 09:25 ALT 22 U/L (12-78) 09/25/18 09:25 Alkaline Phosphatase 99 U/L (46-116) 09/25/18 09:25 Total Protein 5.5 g/dL (6.4-8.2) L 09/25/18 09:25 Albumin 3.1 g/dL (3.4-5.0) L 09/25/18 09:25 Vancomycin Trough 16.1 ug/mL (10.0-20.0) 09/26/18 13:15
[2018-09-26] MEDS: Ibuprofen 600 MG TAB PO (21:16)
[2018-09-27] MEDS: Normal Saline Flush 10 ML SYR IVP ×2 (05:44→12:20)
[2018-09-27] MEDS: Heparin 5,000 UNITS/ML VIAL 5000 UNITS SC (05:57)
[2018-09-27 06:12] VITALS: PULSE 62; RESP 16; TEMP 36; O2SAT 98
[2018-09-27 07:17] LABS: Abs Immature Grans 2.19 k/cumm (0.0-0.09); HCT 30.6 % (36.0-46.0); Mean Corp. HGB Concentration 32.7 g/dL (32.0-36.0); Mean Corpuscular Hemoglobin 29.2 pg (27.0-33.0); Mean Corpuscular Volume 89.2 fL (80-95); Mean Platelet Volume 9.7 fL (8.0-11.0); Platelet Count 170 x1000/uL (130-400); RBC 3.43 m/cumm (4.00-5.20); RBC Distribution Width 13.1 % (11.7-14.6); White Blood Cell Count 17.86 k/cumm (4.4-10.8)
[2018-09-27 07:25] LABS: Anion Gap 10.1 mmol/L (3-11); BUN 10 mg/dL (7-18); CO2 25.9 mmol/L (21.0-32.0); CREATININE 0.55 mg/dL (0.55-1.02); Calcium 8.3 mg/dL (8.5-10.1); Chloride 105 mmol/L (98-107); Glucose 82 mg/dL (70-100); Potassium 3.9 mmol/L (3.5-5.1); Sodium 141 mmol/L (136-145)
[2018-09-27 07:43] VITALS: BP 97/64; PULSE 60; RESP 20; TEMP 36.4; O2SAT 100
[2018-09-27] MEDS: Polyethylene Glycol 3350 17 GM PACKET PO (08:11)
[2018-09-27] MEDS: Multivitamin TAB 1 TAB PO (08:11)
[2018-09-27 08:31] LABS: Absolute Neutrophil Count 15.18 k/cumm (1.2-6.7)
[2018-09-27 08:32] LABS: Absolute Eosinophil Count 0.36 k/cumm (0.0-0.7); Absolute Lymphocyte Count 1.07 k/cumm (1.2-3.4); Absolute Monocyte Count 0.36 k/cumm (0.11-0.7); Diff Comment Manual Differential
[2018-09-27 09:28] VITALS: O2SAT 100
--- NOTE | 2018-09-27 09:58 | PDOC.CMDIS ---
- If Service Date Differs Date of service: 09/27/18 Time of Service: 09:58 LACE Index Scoring Tool - Questions: Length of Stay (in days): 3 Acuity (Admit via E.D.?): Yes Comorbidities: Any Tumor E.D. Visits: 1 - Answers: Total Score: 9 Risk of Readmission: Low Risk Care Management Discharge Reason for Hospitalization: Cellulitis of the right index finger Discharge Plan: Lynda will return home today with no services. She will F/U with PCP and plan of care as prescribed. Lynda's to transport when ready. Patient/Family Education Needs: Review DC instructions, any limitations, and discuss 'Ask Me Three'
--- NOTE | 2018-09-27 10:52 | CHAPLAIN ---
Lynda told me she had just found out she's being discharged and was calling her to pick her up. She's looking forward to getting home with her family.
--- NOTE | 2018-09-27 11:08 | W.PM.DS.N ---
Date of service: 09/27/18 Time of Service: 11:08 DS: Diagnosis Discharge Diagnosis (1) Cellulitis of right index finger: Status: Acute (2) Invasive ductal carcinoma of breast, stage 2: Status: Chronic Discharge Plan Disposition Patient Disposition: HOME Condition: Improving Discharge Details Reason For Visit: CELLUTITIS RT HAND W/LEUKOCYTOSIS, RT BREAST CANCE Admit Date/Time: 09/24/18 17:40 Admit Provider: Sam Austin Attending Provider: Sam Austin Primary Care Provider: [facility] Hospital Course: Lynda Sanchez is a very pleasant 43-year-old female with a past medical history significant for invasive ductal carcinoma of the right breast, stage II, status post bilateral mastectomy with lymph node dissection on the right and group leader wafer polishing placement. She is currently undergoing chemotherapy, she has received one chemo treatment, her next chemo treatment is scheduled for 10/02/2018. She presented to the emergency department on 09/24/2018 and was diagnosed with cellulitis of the right index finger. She reported a small puncture wound to the dorsal aspect of the PIP joint on her right index finger which she kept clean. She went on to have a sudden onset of erythema and edema and a red streak up her arm with increased pain. She was found to have leukocytosis over 26,000, she denied fever, chills or rigors. She was admitted to the [facility] floor for further evaluation and management. She was initially started on IV vancomycin, she reported scalp itching in the emergency department and her antibiotics were changed to clindamycin. However, she went on to have worsening symptoms with increased erythema and re-appearance of the red streak through her forearm and in consideration of her immunocompromised state, she was placed back on vancomycin with pretreatment with Benadryl. Eventually, she declined pretreatment with Benadryl and did not have recurrence of the previous symptoms with vancomycin alone. Her cellulitis improved quickly. Her wound cultures grew MSSA. She was transition to oral antibiotics with Keflex and will be discharged home to complete a course of Keflex. Her leukocytosis improved drastically, on the day of discharge she continued to have a white count of 17,000, she will have follow-up labs on 10/02/2018. She also has follow-up scheduled with oncology on 10/02/2018. She is scheduled for chemotherapy at her follow-up visit, however, this will be discussed with her oncology team at that time. A phone call was placed to her oncologist, Dr. Celia Styles who was not available by phone, however, a message was placed with the triage nurse who will notify the team that she has been treated for cellulitis. Of note, she began losing small amounts of hair, which was expected, however, this upset her. She is discharged home in improved condition today. She is no longer experiencing pain. The erythema has decreased, there is mild erythema immediately surrounding the wound (less than one centimeter in diameter), the wound has no active drainage, she has full range of motion to the finger. She will complete a course of Keflex and follow up with oncology and with her PCP. Home Meds and New Rx's Prescriptions: New cephalexin [Keflex] 500 mg capsule 500 mg PO QID Qty: 40 RF: 0 Continued multivitamin [Multiple Vitamins] tablet 1 tab PO DAILY RF: 0 cholecalciferol (vitamin D3) 1,000 unit capsule 1,000 unit PO DAILY RF: 0 acetaminophen 500 mg tablet 1,000 mg PO Q12H PRN PRNRF: 0 ibuprofen 600 mg tablet 600 mg PO BID PRNRF: 0 cyclobenzaprine 10 mg tablet 10 mg PO TID PRN (Reason: muscle spasm) Qty: 30 RF: 5 dronabinol [Marinol] 5 mg capsule 10 mg PO QID MDD 8 PRN (Reason: nausea and vomiting) Qty: 100 RF: 3 Discharge Instructions Instructions: Cellulitis (DC) Additional Instructions: Take your antibiotic until they are gone (10 days). Follow up labs on Tuesday per [facility], reassess white blood cell count at that time. If you develop a fever or your cellulitis returns, seek care. Follow up with your PCP (the office will call you). Follow up with [facility] on Tuesday10/02/18 as scheduled. Take care, good luck with everything! Stand Alone Forms: Nursing Discharge Form Referrals: Renetta Mac [place], [place] [Primary Care Provider] - (The office will taylor you to schedule an appointment.) Activity:: Activity as Tolerated Equipment/Supplies:: No Equipment Needed Diet:: As Tolerated Discharge Orders Discharge Orders: Discharge Order (Routine); Ordered 09/27/18 Ordered By: Lisa Berry Exam Narrative Exam Narrative: General: Alert and oriented, pleasant and cooperative, normocephalic, sitting up in the chair, in no acute distress. HEENT: Atraumatic, pupils equal and round, mucous membranes moist. Neck: Supple, no JVD. Respiratory: Respirations even and unlabored. Extremities right hand with < 1 cm with with erythema immediately surrounding over her PIP joint on right index finger, no edema, no active drainage, no erythema to hand or forearm. Bilateral lower extremities without clubbing, cyanosis or edema. DS: Data Vitals/I&O Vitals and I&O: Vital Signs Temperature 36.4 C L 09/27/18 07:43 Temperature Source Tympanic 09/27/18 07:43 Pulse 60 09/27/18 07:43 Pulse Rhythm Regular 09/27/18 09:11 Respiratory Rate 20 09/27/18 07:43 Respiratory Effort Non-Labored 09/27/18 09:11 Respiratory Depth Normal 09/27/18 09:11 Blood Pressure 97/64 L 09/27/18 07:43 Blood Pressure Position Sitting 09/24/18 15:57 Pulse Oximetry 100 09/27/18 09:28 Oxygen Delivery Method Room Air 09/27/18 09:28 Oxygen Flow Rate 0 09/27/18 09:28 Pain Level 3 09/26/18 21:16 Comment 09/26/18 04:01 Intake & Output 09/26/18 09/26/18 09/27/18 11:59 23:59 11:59 Intake Total 490 / 1580 1090 / 1580 260 / 260 Balance 490 / 1580 1090 / 1580 260 / 260 Weight 67.4 kg 65.9 kg Intake: IV 250 / 860 610 / 860 20 / 20 Oral 240 / 720 480 / 720 240 / 240 Other: Urine Appearance Clear Comment Pt voiding ad darnell in toilet. Denies sx. Voiding Methods Toilet Labs on day of discharge: Labs from last 24 hours 09/27/18 09/27/18 09/26/18 06:35 06:35 13:15 WBC 17.86 H RBC 3.43 L Hgb 10.0 L Hct 30.6 L MCV 89.2 MCH 29.2 MCHC 32.7 RDW 13.1 Plt Count 170 MPV 9.7 Immature Gran % See Differential Neutrophils % 74.0 Band Neutrophils % 11.0 Lymphocytes % 6.0 Monocytes % 2.0 Eosinophils % 2.0 Basophils % 0.0 Metamyelocytes % 3.0 Myelocytes % 2.0 Absolute Neutrophils 15.18 H Absolute Lymphocytes 1.07 L Absolute Monocytes 0.36 Absolute Eosinophils 0.36 Absolute Basophils 0.00 Differential Comment Manual differential Sodium 141 Potassium 3.9 Chloride 105 Carbon Dioxide 25.9 Anion Gap 10.1 BUN 10 Creatinine 0.55 Estimated GFR/1.73 m2 >= 60.00 Glucose 82 Calcium 8.3 L Vancomycin Trough 16.1 Preliminary micro results at discharge 09/26/18 09:15 Wound Culture - Preliminary Finger - Right First Digit Staphylococcus Aureus 09/25/18 15:00 Abscess Culture - Preliminary Finger - Right First Digit Staphylococcus Aureus [facility] Medical History Weight loss (Chronic) Nasal injury (Chronic) Vestibular active Meniere's disease (Chronic) Invasive ductal carcinoma of breast, stage 2 (Chronic) Surgical History History of dilation and curettage (Acute ~05/29/99) S/P mastectomy, bilateral (Acute) S/P rhinoplasty (Acute) S/P tonsillectomy (Acute ~1995) Family History Mother Hypertension Father Hypertension Heart disease Hyperlipidemia Sister No problems noted. Maternal Grandfather Lung cancer Prostate cancer Paternal Grandfather Alcohol abuse Maternal Grandmother Hypertension Ocular melanoma Paternal Grandmother Ovarian cancer Son No problems noted. Son No problems noted. Son No problems noted. 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
--- NOTE | 2018-09-27 11:20 | DSE_ITS ---
Date of service: 09/27/18 Time of Service: 11:08 DS: Diagnosis Discharge Diagnosis (1) Cellulitis of right index finger: Status: Acute (2) Invasive ductal carcinoma of breast, stage 2: Status: Chronic Discharge Plan Disposition Patient Disposition: HOME Condition: Improving Discharge Details Reason For Visit: CELLUTITIS RT HAND W/LEUKOCYTOSIS, RT BREAST CANCE Admit Date/Time: 09/24/18 17:40 Admit Provider: Sam Austin Attending Provider: Sam Austin Primary Care Provider: Renetta Mac [facility] Hospital Course: Lynda Sanchez is a very pleasant 43-year-old female with a past medical history significant for invasive ductal carcinoma of the right breast, stage II, status post bilateral mastectomy with lymph node dissection on the right and project control officer placement. She is currently undergoing chemotherapy, she has received one chemo treatment, her next chemo treatment is scheduled for 10/02/2018. She presented to the emergency department on 09/24/2018 and was diagnosed with cellulitis of the right index finger. She reported a small puncture wound to the dorsal aspect of the PIP joint on her right index finger which she kept clean. She went on to have a sudden onset of erythema and edema and a red streak up her arm with increased pain. She was found to have leukocytosis over 26,000, she denied fever, chills or rigors. She was admitted to the [facility] floor for further evaluation and management. She was initially started on IV vancomycin, she reported scalp itching in the emergency department and her antibiotics were changed to clindamycin. However, she went on to have worsening symptoms with increased erythema and re-appearance of the red streak through her forearm and in consideration of her immunocompromised state, she was placed back on vancomycin with pretreatment with Benadryl. Eventually, she declined pretreatment with Benadryl and did not have recurrence of the previous symptoms with vancomycin alone. Her cellulitis improved quickly. Her wound cultures grew MSSA. She was transition to oral antibiotics with Keflex and will be discharged home to complete a course of Keflex. Her leukocytosis improved drastically, on the day of discharge she continued to have a white count of 17,000, she will have follow-up labs on 10/02/2018. She also has follow-up scheduled with oncology on 10/02/2018. She is scheduled for chemotherapy at her follow-up visit, however, this will be discussed with her oncology team at that time. A phone call was placed to her oncologist, Dr. Celia Styles who was not available by phone, however, a message was placed with the triage nurse who will notify the team that she has been treated for cellulitis. Of note, she began losing small amounts of hair, which was expected, however, this upset her. She is discharged home in improved condition today. She is no longer experiencing pain. The erythema has decreased, there is mild erythema immediately surrounding the wound (less than one centimeter in diameter), the wound has no active drainage, she has full range of motion to the finger. She wi ll complete a course of Keflex and follow up with oncology and with her PCP. Home Meds and New Rx's Prescriptions: New cephalexin [Keflex] 500 mg capsule 500 mg PO QID Qty: 40 RF: 0 Continued multivitamin [Multiple Vitamins] tablet 1 tab PO DAILY RF: 0 cholecalciferol (vitamin D3) 1,000 unit capsule 1,000 unit PO DAILY RF: 0 acetaminophen 500 mg tablet 1,000 mg PO Q12H PRN PRNRF: 0 ibuprofen 600 mg tablet 600 mg PO BID PRNRF: 0 cyclobenzaprine 10 mg tablet 10 mg PO TID PRN (Reason: muscle spasm) Qty: 30 RF: 5 dronabinol [Marinol] 5 mg capsule 10 mg PO QID MDD 8 PRN (Reason: nausea and vomiting) Qty: 100 RF: 3 Discharge Instructions Instructions: Cellulitis (DC) Additional Instructions: Take your antibiotic until they are gone (10 days). Follow up labs on Tuesday per [facility], reassess white blood cell count at that time. If you develop a fever or your cellulitis returns, seek care. Follow up with your PCP (the office will call you). Follow up with [facility] on Tuesday10/02/18 as scheduled. Take care, good luck with everything! Stand Alone Forms: Nursing Discharge Form Referrals: Renetta Mac MD, [place] [Primary Care Provider] - (The office will taylor you to schedule an appointment.) Activity:: Activity as Tolerated Equipment/Supplies:: No Equipment Needed Diet:: As Tolerated Discharge Orders Discharge Orders: Discharge Order (Routine); Ordered 09/27/18 Ordered By: Lisa Berry Exam Narrative Exam Narrative: General: Alert and oriented, pleasant and cooperative, normocephalic, sitting up in the chair, in no acute distress. HEENT: Atraumatic, pupils equal and round, mucous membranes moist. Neck: Supple, no JVD. Respiratory: Respirations even and unlabored. Extremities right hand with < 1 cm with with erythema immediately surrounding over her PIP joint on right index finger, no edema, no active drainage, no erythema to hand or forearm. Bilateral lower extremities without clubbing, cyanosis or edema. DS: Data Vitals/I&O Vitals and I&O: Vital Signs Temperature 36.4 C L 09/27/18 07:43 Temperature Source Tympanic 09/27/18 07:43 Pulse 60 09/27/18 07:43 Pulse Rhythm Regular 09/27/18 09:11 Respiratory Rate 20 09/27/18 07:43 Respiratory Effort Non-Labored 09/27/18 09:11 Respiratory Depth Normal 09/27/18 09:11 Blood Pressure 97/64 L 09/27/18 07:43 Blood Pressure Position Sitting 09/24/18 15:57 Pulse Oximetry 100 09/27/18 09:28 Oxygen Delivery Method Room Air 09/27/18 09:28 Oxygen Flow Rate 0 09/27/18 09:28 Pain Level 3 09/26/18 21:16 Comment 09/26/18 04:01 Intake & Output 09/26/18 09/26/18 09/27/18 11:59 23:59 11:59 Intake Total 490 / 1580 1090 / 1580 260 / 260 Balance 490 / 1580 1090 / 1580 260 / 260 Weight 67.4 kg 65.9 kg Intake: IV 250 / 860 610 / 860 20 / 20 Oral 240 / 720 480 / 720 240 / 240 Other: Urine Appearance Clear Comment Pt voiding ad darnell in toilet. Denies sx. Voiding Methods Toilet Labs on day of discharge: Labs from last 24 hours 09/27/18 09/27/18 09/26/18 06:35 06:35 13:15 WBC 17.86 H RBC 3.43 L Hgb 10.0 L Hct 30.6 L MCV 89.2 MCH 29.2 MCHC 32.7 RDW 13.1 Plt Count 170 MPV 9.7 Immature Gran % See Differential Neutrophils % 74.0 Band Neutrophils % 11.0 Lymphocytes % 6.0 Monocytes % 2.0 Eosinophils % 2.0 Basophils % 0.0 Metamyelocytes % 3.0 Myelocytes % 2.0 Absolute Neutrophils 15.18 H Absolute Lymphocytes 1.07 L Absolute Monocytes 0.36 Absolute Eosinophils 0.36 Absolute Basophils 0.00 Differential Comment Manual differential Sodium 141 Potassium 3.9 Chloride 105 Carbon Dioxide 25.9 Anion Gap 10.1 BUN 10 Creatinine 0.55 Estimated GFR/1.73 m2 >= 60.00 Glucose 82 Calcium 8.3 L Vancomycin Trough 16.1 Preliminary micro results at discharge 09/26/18 09:15 Wound Culture - Preliminary Finger - Right First Digit Staphylococcus Aureus 09/25/18 15:00 Abscess Culture - Preliminary Finger - Right First Digit Staphylococcus Aureus [facility] Medical History Weight loss (Chronic) Nasal injury (Chronic) Vestibular active Meniere's disease (Chronic) Invasive ductal carcinoma of breast, stage 2 (Chronic) Surgical History History of dilation and curettage (Acute ~05/29/99) S/P mastectomy, bilateral (Acute) S/P rhinoplasty (Acute) S/P tonsillectomy (Acute ~1995) Family History Mother Hypertension Father Hypertension Heart disease Hyperlipidemia Sister No problems noted. Maternal Grandfather Lung cancer Prostate cancer Paternal Grandfather Alcohol abuse Maternal Grandmother Hypertension Ocular melanoma Paternal Grandmother Ovarian cancer Son No problems noted. Son No problems noted. Son No problems noted. 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
[2018-09-27 11:22] VITALS: BP 125/77; PULSE 70; RESP 20; TEMP 36.5; O2SAT 98
[2018-09-27] MEDS: Heparin 500 UNITS/5 ML SYRINGE IVP (12:39)
== END 2018-09-27 12:34 | disposition home or self-care (01) | DRG 603 ==
LOC: ER 16:04 → MS 18:48
PROVIDERS: Nurse Practitioner; Nurse Practitioner Family; Admitting Provider Family Medicine; Emergency Provider Student in an Organized Health Care Education/Training Program; PCP Family Medicine; Visit Provider Family Medicine
DX: L03.011 Cellulitis of right finger (principal); B95.61 Methicillin susceptible Staphylococcus aureus infection as the cause of diseases classified elsewhere; S61.230A Puncture wound without foreign body of right index finger without damage to nail, initial encounter; X58.XXXA Exposure to other specified factors, initial encounter; C50.911 Malignant neoplasm of unspecified site of right female breast; Z79.899 Other long term (current) drug therapy; L29.8 Other pruritus; T36.8X5A Adverse effect of other systemic antibiotics, initial encounter
CPT/HCPCS: 36591; 80048; 80053; 85027; 87077; 96361; 96365; 96375; 99223; 99232; 99239; 99285; 80202; 83605; 85025; 87070; 87186; 87205; 99284; J1200; J1644; J3370; J3490

== ENCOUNTER 2018-10-02 01:28 | Outpatient (RCR) | payer BC, SELFPAY ==
[2018-10-02] MEDS: Normal Saline Flush 10 ML SYR IVP (11:00)
[2018-10-02 11:52] LABS: Abs Immature Grans 0.15 k/cumm (0.0-0.09); Absolute Basophil Count 0.07 k/cumm (0.0-0.2); Absolute Eosinophil Count 0.04 k/cumm (0.0-0.7); Absolute Lymphocyte Count 1.93 k/cumm (1.2-3.4); Absolute Monocyte Count 0.76 k/cumm (0.11-0.7); Absolute Neutrophil Count 6.01 k/cumm (1.2-6.7); Basophils % 0.8; Eosinophils % 0.4; HCT 34.7 % (36.0-46.0); HGB 11.4 g/dL (12.0-15.5); Immature Grans % 1.7; Lymphocytes % 21.5; Mean Corp. HGB Concentration 32.9 g/dL (32.0-36.0); Mean Corpuscular Hemoglobin 29.3 pg (27.0-33.0); Mean Corpuscular Volume 89.2 fL (80-95); Mean Platelet Volume 10.2 fL (8.0-11.0); Monocytes % 8.5; Neutrophils % 67.1; Platelet Count 286 x1000/uL (130-400); RBC 3.89 m/cumm (4.00-5.20); RBC Distribution Width 13.6 % (11.7-14.6); White Blood Cell Count 8.96 k/cumm (4.4-10.8)
[2018-10-02 12:01] LABS: ALT 103 U/L (12-78); AST 38 U/L (15-37); Albumin 4.1 g/dL (3.4-5.0); Alkaline Phosphatase 94 U/L (46-116); BUN 11 mg/dL (7-18); Bilirubin, Total 0.3 mg/dL (0.2-1.0); CREATININE 0.51 mg/dL (0.55-1.02); Calcium 9.2 mg/dL (8.5-10.1); Chloride 104 mmol/L (98-107); Glucose 84 mg/dL (70-100); Potassium 3.8 mmol/L (3.5-5.1); Sodium 140 mmol/L (136-145)
== END 2018-10-15 23:59 | disposition home or self-care (01) ==
LOC: INF 01:28
PROVIDERS: PCP Family Medicine; Visit Provider Nurse Practitioner Family
DX: C50.212 Malignant neoplasm of upper-inner quadrant of left female breast (principal); Z17.0 Estrogen receptor positive status [ER+]; Z45.2 Encounter for adjustment and management of vascular access device
CPT/HCPCS: 36591; 80053; 85025

== ENCOUNTER 2018-11-13 01:47 | Outpatient (RCR) | payer BC, SELFPAY ==
[2018-10-23] MEDS: Normal Saline Flush 10 ML SYR IVP (10:40)
[2018-10-23 11:10] LABS: Abs Immature Grans 0.04 k/cumm (0.0-0.09); Absolute Basophil Count 0.05 k/cumm (0.0-0.2); Absolute Eosinophil Count 0.06 k/cumm (0.0-0.7); Absolute Lymphocyte Count 1.21 k/cumm (1.2-3.4); Absolute Monocyte Count 0.67 k/cumm (0.11-0.7); Basophils % 0.7; Eosinophils % 0.8; HCT 32.3 % (36.0-46.0); HGB 10.5 g/dL (12.0-15.5); Immature Grans % 0.5; Lymphocytes % 16.3; Mean Corp. HGB Concentration 32.5 g/dL (32.0-36.0); Mean Corpuscular Hemoglobin 29.2 pg (27.0-33.0); Mean Corpuscular Volume 89.7 fL (80-95); Mean Platelet Volume 9.9 fL (8.0-11.0); Neutrophils % 72.7; Platelet Count 240 x1000/uL (130-400); RBC Distribution Width 14.9 % (11.7-14.6); White Blood Cell Count 7.43 k/cumm (4.4-10.8)
[2018-10-23 11:26] LABS: ALT 41 U/L (12-78); AST 19 U/L (15-37); Albumin 3.9 g/dL (3.4-5.0); Alkaline Phosphatase 93 U/L (46-116); Anion Gap 6.9 mmol/L (3-11); BUN 17 mg/dL (7-18); Bilirubin, Direct 0.06 mg/dL (0.00-0.20); Bilirubin, Total 0.2 mg/dL (0.2-1.0); CO2 28.1 mmol/L (21.0-32.0); Calcium 8.3 mg/dL (8.5-10.1); Chloride 105 mmol/L (98-107); Glucose 90 mg/dL (70-100); Potassium 3.8 mmol/L (3.5-5.1); Sodium 140 mmol/L (136-145); Total Protein 6.6 g/dL (6.4-8.2)
[2018-11-13] MEDS: Normal Saline Flush 10 ML SYR IVP (11:00)
[2018-11-13 11:31] LABS: Abs Immature Grans 0.17 k/cumm (0.0-0.09); Absolute Basophil Count 0.07 k/cumm (0.0-0.2); Absolute Eosinophil Count 0.11 k/cumm (0.0-0.7); Absolute Lymphocyte Count 1.52 k/cumm (1.2-3.4); Absolute Monocyte Count 0.91 k/cumm (0.11-0.7); Absolute Neutrophil Count 6.93 k/cumm (1.2-6.7); Basophils % 0.7; Eosinophils % 1.1; HCT 34.4 % (36.0-46.0); HGB 11.2 g/dL (12.0-15.5); Immature Grans % 1.8; Lymphocytes % 15.7; Mean Corp. HGB Concentration 32.6 g/dL (32.0-36.0); Mean Corpuscular Hemoglobin 29.4 pg (27.0-33.0); Mean Corpuscular Volume 90.3 fL (80-95); Mean Platelet Volume 9.1 fL (8.0-11.0); Monocytes % 9.4; Neutrophils % 71.3; Platelet Count 334 x1000/uL (130-400); RBC 3.81 m/cumm (4.00-5.20); RBC Distribution Width 15.3 % (11.7-14.6); White Blood Cell Count 9.71 k/cumm (4.4-10.8)
[2018-11-13 11:51] LABS: ALT 88 U/L (12-78); AST 28 U/L (15-37); Albumin 3.9 g/dL (3.4-5.0); Alkaline Phosphatase 114 U/L (46-116); Anion Gap 6.6 mmol/L (3-11); BUN 11 mg/dL (7-18); Bilirubin, Total 0.2 mg/dL (0.2-1.0); CO2 30.4 mmol/L (21.0-32.0); CREATININE 0.62 mg/dL (0.55-1.02); Calcium 8.6 mg/dL (8.5-10.1); Chloride 104 mmol/L (98-107); Glucose 96 mg/dL (70-100); Potassium 3.9 mmol/L (3.5-5.1); Sodium 141 mmol/L (136-145); Total Protein 7.1 g/dL (6.4-8.2)
== END 2018-11-14 23:59 | disposition home or self-care (01) ==
LOC: INF 01:47
PROVIDERS: PCP Family Medicine; Visit Provider Nurse Practitioner Family
DX: C50.211 Malignant neoplasm of upper-inner quadrant of right female breast (principal); Z17.0 Estrogen receptor positive status [ER+]; R94.5 Abnormal results of liver function studies; Z45.2 Encounter for adjustment and management of vascular access device
CPT/HCPCS: 36591; 80053; 80076; 85025

== ENCOUNTER 2018-12-04 02:41 | Outpatient (RCR) | payer BC, SELFPAY ==
[2018-12-04] MEDS: Normal Saline Flush 10 ML SYR IVP (12:46)
[2018-12-04 12:58] LABS: Abs Immature Grans 0.02 k/cumm (0.0-0.09); Absolute Basophil Count 0.04 k/cumm (0.0-0.2); Absolute Eosinophil Count 0.02 k/cumm (0.0-0.7); Absolute Monocyte Count 0.65 k/cumm (0.11-0.7); Basophils % 0.6; Eosinophils % 0.3; Immature Grans % 0.3; Lymphocytes % 16.6; Mean Corp. HGB Concentration 33.3 g/dL (32.0-36.0); Mean Corpuscular Hemoglobin 29.5 pg (27.0-33.0); Mean Corpuscular Volume 88.5 fL (80-95); Mean Platelet Volume 9.8 fL (8.0-11.0); Monocytes % 9.8; Neutrophils % 72.4; Platelet Count 245 x1000/uL (130-400); RBC 3.39 m/cumm (4.00-5.20); RBC Distribution Width 15.6 % (11.7-14.6); White Blood Cell Count 6.63 k/cumm (4.4-10.8)
[2018-12-04 13:12] LABS: ALT 50 U/L (12-78); AST 18 U/L (15-37); Albumin 3.8 g/dL (3.4-5.0); Alkaline Phosphatase 94 U/L (46-116); Anion Gap 8.7 mmol/L (3-11); BUN 20 mg/dL (7-18); Bilirubin, Total 0.3 mg/dL (0.2-1.0); CO2 27.3 mmol/L (21.0-32.0); CREATININE 0.78 mg/dL (0.55-1.02); Calcium 8.8 mg/dL (8.5-10.1); Chloride 104 mmol/L (98-107); Glucose 96 mg/dL (70-100); Potassium 3.9 mmol/L (3.5-5.1); Sodium 140 mmol/L (136-145); Total Protein 6.7 g/dL (6.4-8.2)
== END 2018-12-15 23:59 | disposition home or self-care (01) ==
LOC: INF 02:41
PROVIDERS: PCP Family Medicine; Visit Provider Nurse Practitioner Family
DX: C50.211 Malignant neoplasm of upper-inner quadrant of right female breast (principal); Z45.2 Encounter for adjustment and management of vascular access device
CPT/HCPCS: 36591; 80053; 85025

== ENCOUNTER 2018-12-25 02:03 | Outpatient (RCR) | payer BC, SELFPAY ==
[2018-12-25] MEDS: Normal Saline Flush 10 ML SYR IVP (12:53)
[2018-12-25 13:03] LABS: Abs Immature Grans 0.02 k/cumm (0.0-0.09); Absolute Basophil Count 0.04 k/cumm (0.0-0.2); Absolute Eosinophil Count 0.04 k/cumm (0.0-0.7); Absolute Lymphocyte Count 1.13 k/cumm (1.2-3.4); Absolute Monocyte Count 0.79 k/cumm (0.11-0.7); Absolute Neutrophil Count 4.62 k/cumm (1.2-6.7); Basophils % 0.6; Eosinophils % 0.6; HCT 28.2 % (36.0-46.0); HGB 9.1 g/dL (12.0-15.5); Immature Grans % 0.3; Mean Corp. HGB Concentration 32.3 g/dL (32.0-36.0); Mean Corpuscular Hemoglobin 29.8 pg (27.0-33.0); Mean Corpuscular Volume 92.5 fL (80-95); Monocytes % 11.9; Neutrophils % 69.6; Platelet Count 259 x1000/uL (130-400); RBC 3.05 m/cumm (4.00-5.20); White Blood Cell Count 6.64 k/cumm (4.4-10.8)
[2018-12-25 13:33] LABS: ALT 45 U/L (12-78); AST 25 U/L (15-37); Albumin 3.5 g/dL (3.4-5.0); Alkaline Phosphatase 89 U/L (46-116); Anion Gap 9.8 mmol/L (3-11); BUN 8 mg/dL (7-18); Bilirubin, Total 0.2 mg/dL (0.2-1.0); CO2 28.2 mmol/L (21.0-32.0); CREATININE 0.54 mg/dL (0.55-1.02); Calcium 8.6 mg/dL (8.5-10.1); Chloride 104 mmol/L (98-107); Glucose 107 mg/dL (70-100); Potassium 3.4 mmol/L (3.5-5.1); Sodium 142 mmol/L (136-145); Total Protein 6.4 g/dL (6.4-8.2)
== END 2019-01-14 23:59 | disposition home or self-care (01) ==
LOC: INF 02:03
PROVIDERS: PCP Family Medicine; Visit Provider Nurse Practitioner Family
DX: C50.211 Malignant neoplasm of upper-inner quadrant of right female breast (principal); Z17.0 Estrogen receptor positive status [ER+]
CPT/HCPCS: 36591; 80053; 85025

== ENCOUNTER 2019-02-05 01:23 | Outpatient (RCR) | payer BC, SELFPAY | END 2019-02-14 23:59 | disposition home or self-care (01) | LOC: INF 01:23 | PROVIDERS: PCP Family Medicine; Visit Provider Nurse Practitioner Family | DX: R69 Illness, unspecified (principal) ==

== ENCOUNTER 2019-04-10 01:53 | Outpatient (RCR) | payer BC, SELFPAY ==
[2019-04-10] MEDS: Heparin 500 UNITS/5 ML SYRINGE (13:25)
[2019-04-10] MEDS: Normal Saline Flush 10 ML SYR 30 ML IVP (13:25)
== END 2019-04-16 23:59 | disposition home or self-care (01) ==
LOC: INF 01:53
PROVIDERS: PCP Family Medicine; Visit Provider Nurse Practitioner Family
DX: Z45.2 Encounter for adjustment and management of vascular access device (principal)
CPT/HCPCS: 96523

== ENCOUNTER 2020-12-30 00:48 | Outpatient (CLI) | payer BC, SELFPAY ==
--- NOTE | 2020-12-30 14:45 | DI.RAD_ITS ---
Exam(s) XR ARTHRITIS SERIES EXAM: XR ARTHRITIS SERIES CLINICAL HISTORY: multiple arthralgia dov hands, feet, knees, ankle,M25.50. TECHNIQUE: 2D digital imaging was performed. COMPARISON: No exams were available for comparison FINDINGS: BONES: No acute fracture is present. No bony destructive lesion is seen. There is no osteopenia. JOINTS: No dislocation present. No erosions or joint space narrowing is seen. No hypertrophic do es are seen at the joints. SOFT TISSUE: Normal. No soft tissue calcifications are present. IMPRESSION: Unremarkable radiographs of bilat hands DATA REPOSITORY: RADIATION DOSE DELIVERED:
[2020-12-30 14:49] LABS: Absolute Basophil Count 0.03 10^3/uL (0.0-0.2); Absolute Eosinophil Count 0.14 10^3/uL (0.0-0.7); Absolute Lymphocyte Count 1.92 10^3/uL (1.2-3.4); Absolute Monocyte Count 0.46 10^3/uL (0.1-0.8); Absolute Neutrophil Count 3.28 10^3/uL (1.2-6.7); Basophils % 0.5; Eosinophils % 2.4; HCT 37.7 % (36.0-46.0); HGB 12.6 g/dL (11.2-15.7); Lymphocytes % 32.9; MCH 28.2 pg (27.0-33.0); MCHC 33.4 % (32.0-36.0); MCV 84.3 fL (80-95); MPV 9.6 fL (8.0-11.0); Monocytes % 7.9; Neutrophils % 56.3; Nucleated RBC 0 %; Platelet Count 265 10^3/uL (130-400); RBC 4.47 10^6/uL (3.93-5.22); RDW 12.9 % (11.7-14.6); RDW-SD 39.8 fL; WBC 5.83 10^3/uL (4.4-10.8)
[2020-12-30 14:52] LABS: ESR 9 mm/hr (0-20)
[2020-12-30 15:45] LABS: C-Reactive Protein 0.46 mg/dL (0.0-0.3); Uric Acid 8.9 mg/dL (2.6-6.0)
[2020-12-30 21:44] LABS: Rheumatoid Factor <8.6 IU/mL (<12.0)
[2020-12-31 13:20] LABS: ANA Interpretation Positive (Negative); ANA Titer Pattern 1:160 Homogeneous
[2021-01-01 01:14] LABS: Vitamin D 25 Total 43.2 ng/mL (30-100)
== END 2020-12-30 01:08 ==
PROVIDERS: PCP Family Medicine; Visit Provider Family Medicine
DX: M25.542 Pain in joints of left hand (principal); M25.541 Pain in joints of right hand; M25.572 Pain in left ankle and joints of left foot; M25.571 Pain in right ankle and joints of right foot; M25.561 Pain in right knee; M25.562 Pain in left knee
CPT/HCPCS: 36415; 82306; 85652; 86200; 73120; 84550; 85025; 86038; 86140; 86431

== ENCOUNTER 2022-01-19 15:06 | Outpatient (REF) | payer BC, SELFPAY | END 2022-01-19 15:07 | disposition home or self-care (01) | LOC: LBN 15:06 | PROVIDERS: PCP Family Medicine; Visit Provider Physician Assistant Medical | DX: B82.0 Intestinal helminthiasis, unspecified (principal) | CPT/HCPCS: 87177 ==

== ENCOUNTER 2022-02-16 14:44 | Outpatient (CLI) | payer BC, SELFPAY ==
[2022-02-16 14:50] LABS: Hemoglobin A1C 5.4 % (<5.7)
[2022-02-16 17:19] LABS: TSH (W/Ref FT4) 1.44 uIU/mL (0.36-3.74)
== END 2022-02-16 14:45 | disposition home or self-care (01) ==
LOC: LBO 14:48
PROVIDERS: PCP Family Medicine; Visit Provider Family Medicine
DX: R63.4 Abnormal weight loss (principal); E11.9 Type 2 diabetes mellitus without complications
CPT/HCPCS: 36415; 83036; 84443

== ENCOUNTER → 2023-06-16 00:57 | Outpatient (CLI) | payer BC, SELFPAY ==
--- NOTE | 2023-06-16 07:45 | DI.DEXA_ITS ---
Exam(s) XR DEXA BONE DENSITY W/WO REANNA EXAM: XR DEXA BONE DENSITY W/WO REANNA CLINICAL HISTORY: h/o breast ca,screening for osteoporosis in postmenopausal woman,z78.0 TECHNIQUE: Routine DEXA evaluation of the lumbar spine, hip, or forearm. COMPARISON: No exams were available for comparison FINDINGS: Performed on a Hologic unit. Lateral image: No compression fracture evident. Lumbar Spine total T-score: -0.4 Hip total T-score:-0.7 Independent reading at the level of the femoral neck yields T-score of -0.3 Forearm total T-score: -0.4 IMPRESSION: Bone mineral density measures in the normal range. Fracture risk is low. Note: Any spine fracture indicates 5x risk for subsequent spine fracture and 2x risk for subsequent h ip fracture. World Health Organization criteria for BMD interpretation classify patients: Normal...... T- Score at or above -1.0 Osteopenic... T- Score between -1.0 and -2.5 Osteoporosis... T-Score at or below -2.5
== END ==
PROVIDERS: PCP Family Medicine; Visit Provider Family Medicine
DX: Z78.0 Asymptomatic menopausal state (principal); Z13.820 Encounter for screening for osteoporosis
CPT/HCPCS: 77080

== ENCOUNTER 2024-07-31 04:01 | Outpatient (CLI) | payer OTHER, SELFPAY ==
[2024-07-31 23:15] LABS: Hepatitis C Ab w Rflx HCV PCR Negative (Negative)
[2024-08-02 10:10] LABS: TB Interpretation Negative (Negative); TB1 Ag minus Nil 0.02 IU/mL
== END 2024-07-31 04:02 | disposition home or self-care (01) ==
LOC: LBO 04:02
PROVIDERS: PCP Family Medicine; Visit Provider Family Medicine
DX: Z11.1 Encounter for screening for respiratory tuberculosis (principal); Z11.59 Encounter for screening for other viral diseases
CPT/HCPCS: 36415; 86803; 86480